=== PATIENT | male | born 2000 | race African-American/Black ===

== ENCOUNTER 2019-02-09 20:31 | Emergency (ER) | payer OTHER ==
--- NOTE | 2019-02-09 22:11 | RAD ---
PA AND LATERAL CHEST: HISTORY: Chest pain. FINDINGS: The heart size is normal. The lungs are expanded without focal areas of consolidation, pneumothoraces or pleural effusions. No acute osseous abnormalities are seen. IMPRESSION: No radiographic evidence of acute cardiopulmonary process. POS: OFF
== END 2019-02-09 21:58 | disposition home or self-care (01) ==
LOC: NAV ERS 20:31 → EDBD 20:31 → NAV ERS 21:58
DX: R07.89 Other chest pain (principal); K21.9 Gastro-esophageal reflux disease without esophagitis
CPT/HCPCS: 71046; 93005; 94760

== ENCOUNTER 2019-11-19 02:09 | Emergency (ER) | payer OTHER ==
[2019-11-19] MEDS ORDERED: Lidocaine Viscous Sol 2% 15 ml UD Cup ONE (02:17)
[2019-11-19] MEDS ORDERED: Mag-Al Plus 1200 MG/1200 MG/120 MG/30 ML UDCUP ONE (02:17)
--- NOTE | 2019-11-19 07:42 | RAD ---
RADIOGRAPH CHEST 1 VIEW: DATE: 11/19/2019 HISTORY: 19-year-old male with chest pain FINDINGS: The visualized lung lynn are clear. The cardiomediastinal silhouette and hilar shadows are normal. The lateral costophrenic angles are sharp. The osseous structures appear normal. There is no pneumothorax. IMPRESSION: Negative.
== END 2019-11-19 04:16 ==
LOC: NAV ERS 02:09
DX: K21.9 Gastro-esophageal reflux disease without esophagitis (principal)
CPT/HCPCS: 71045; 93005